=== PATIENT | male | born 1990 | race Caucasian/White ===

== ENCOUNTER 2018-11-18 07:02 | Emergency (ER) | payer BC ==
[~2018-11-18] VITALS: Ht 175.3 cm; Wt 127.7 kg
[2018-11-18 07:05] VITALS: BP 157/102; PULSE 108; RESP 20; Ht 175.3 cm; Wt 127.7 kg
[2018-11-18] MEDS ORDERED: NAPR-985 PO (07:34)
--- NOTE | 2018-11-18 07:38 | ERD ---
ER Documentation Chief Complaint Chief Complaint Complains of lower back pain x 2 days HPI Patient is a 28-year-old male who has a history of chronic lower back pain who presents ER for concerns of lower back pain times 2 days. Patient describes the pain to be localized to his left lower back and radiating down his left leg. Patient states that this time he has minimal pain. Patient states he is here because he wanted to learn some back exercises as well as get a note for work. Patient denies any fevers, chills, nausea, vomiting, abdominal pain, chest pain, shortness of breath, saddle anesthesia, urine incontinence or stool incontinence. 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 No recent travel. No sick contacts. Patient denies any IV drug use. Patient denies any falls or trauma. ROS All systems reviewed and are negative except as per history of present illness. Medications Home Meds Active Scripts Naproxen* (Naprosyn*) 500 Mg Tablet, 500 MG PO BID PRN for PAIN AND/OR INFLAMMATION, #30 TAB Prov:ROBY MABRY PA-C 11/18/18 Allergies Allergies: Coded Allergies: No Known Allergy (Unverified , 11/18/18) FmHx Family History: No diabetes Physical Exam Vitals Vital Signs Date Temp Pulse Resp B/P (MAP) Pulse Ox O2 O2 Flow FiO2 Time Delivery Rate 11/18/18 97.7 108 20 157/102 98 07:05 (120) Physical Exam GENERAL: Well-developed, well-nourished male. Appears in no acute distress. HEAD: Normocephalic, atraumatic. EYES: Pupils are equally reactive bilaterally. EOMs grossly intact. No conjunctival erythema. ENT: Moist mucous membranes. No uvula deviation. No kissing tonsils. NECK: Supple. No meningismus. Normal range of motion of the neck. LUNG: Clear to auscultation bilaterally. No rhonchi, wheezing, rales or coarse breath sounds. HEART: Regular rate and rhythm. No murmurs, rubs or gallops. BACK: No midline tenderness. Minimally tender to palpation over the left lumbar paraspinal muscles. EXTREMITIES: Equal pulses bilaterally. No peripheral clubbing, cyanosis or edema. No unilateral leg swelling. NEUROLOGIC: Alert and oriented. Moving all four extremities without any difficulty. Normal speech. Steady gait. SKIN: Normal color. Warm and dry. No rashes or lesions. Procedures/MDM MEDICAL DECISION MAKING: This is a 28-year-old male with a history of chronic lower back pain who pres ents to the ER for concerns of mild back pain times 2 days. Patient stated that he was here to receive information on back exercises as well as a note for work. Vital signs were reviewed. Patient was afebrile. Patient denied any saddle anesthesia, urinary incontinence, bowel incontinence, night pain or recent trauma. Patient was advised to take naproxen at home. Patient was given handouts on exercises. Low suspicion for cauda equine syndrome, spinal fractures, epidural abscess, spinal metastases, osteomyelitis, aortic dissection, ruptured or leaking AA, DJD, pyelonephritis or nephrolithiasis. Patient was advised to follow-up with primary care physician for referral for physical therapy to help strengthen his back. PRESCRIPTIONS: Naproxen DISCHARGE: At this time, patient is stable for discharge and outpatient management. RICE therapy and ROM exercises were advised to avoid stiffness. I have instructed the patient to follow-up with his/her primary care physician in 1-2 days. I have discussed with the patient the possibility of needing to see an recreation program specialist for further workup and imaging if the pain persists. I have in structed the patient to promptly return to the ER for any new or worsening symptoms including increased pain, swelling, warmth, urinary incontinence, stool incontinence, weakness or numbness. The patient and/or family expressed understanding of and agreement with this plan. All questions were answered. Home care instructions were provided. Disclaimer: Inadvertent spelling and grammatical errors are likely due to EHR/dictation software use and do not reflect on the overall quality of patient care. Also, please note that the electronic time recorded on this note does not necessarily reflect the actual time of the patient encounter. Departure Diagnosis: Primary Impression: Lower back pain Chronicity: acute Back pain laterality: left Sciatica presence: with s ciatica Sciatica laterality: sciatica of left side Qualified Codes: M54.42 - Lumbago with sciatica, left side Condition: Stable Patient Instructions: Back Exercises: Lower Back Rotation, Back Exercises: Lower Back Stretch Referrals: COMMUNITY CLINICS YOU HAVE RECEIVED A MEDICAL SCREENING EXAM AND THE RESULTS INDICATE THAT YOU DO NOT HAVE A CONDITION THAT REQUIRES URGENT TREATMENT IN THE EMERGENCY DEPARTMENT. FURTHER EVALUATION AND TREATMENT OF YOUR CONDITION CAN WAIT UNTIL YOU ARE SEEN IN YOUR DOCTORS OFFICE WITHIN THE NEXT 1-2 DAYS. IT IS YOUR RESPONSIBILITY TO MAKE AN APPOINTMENT FOR FOLOW-UP CARE. IF YOU HAVE A PRIMARY DOCTOR --you should call your primary doctor and schedule an appointment IF YOU DO NOT HAVE A PRIMARY DOCTOR YOU CAN CALL OUR PHYSICIAN REFERRAL HOTLINE AT IF YOU CAN NOT AFFORD TO SEE A PHYSICIAN YOU CAN CHOSE FROM THE FOLLOWING [facility] [address] [facility] [address] [facility] [address] [facility] [address] [facility] [address] [facility]. [facility] [address] [facility]. [facility] YOU HAVE RECEIVED A MEDICAL SCREENING EXAM AND THE RESULTS INDICATE THAT YOU DO NOT HAVE A CONDITION THAT REQUIRES URGENT TREATMENT IN THE EMERGENCY DEPARTMENT. FURTHER EVALUATION AND TREATMENT OF YOUR CONDITION CAN WAIT UNTIL YOU ARE SEEN IN YOUR DOCTORS OFFICE WITHIN THE NEXT 1-2 DAYS. IT IS YOUR RESPONSIBILITY TO MAKE AN APPOINTMENT FOR FOLOW-UP CARE. IF YOU HAVE A PRIMARY DOCTOR --you should call your primary doctor and schedule and appointment IF YOU DO NOT HAVE A PRIMARY DOCTOR YOU CAN CALL OUR PHYSICIAN REFERRAL HOTLINE AT . IF YOU CAN NOT AFFORD TO SEE A PHYSICIAN YOU CAN CHOSE FROM THE FOLLOWING [facility]: [facility] [address] [place] [address] [facility] [address] [place] [address] [facility] + [facility] [address] [place] [address] Additional Instructions: Call your primary care doctor TOMORROW for an appointment during the next 1-2 days.See the doctor sooner or return here if your condition worsens before your appointment time. ROBY MABRY PA-C Nov 18, 2018 07:38
== END 2018-11-18 07:45 | disposition home or self-care (01) ==
LOC: FTE 07:02
DX: M54.42 Lumbago with sciatica, left side (principal)
CPT/HCPCS: 99282